=== PATIENT | female | born 2000 | race Caucasian/White ===

== ENCOUNTER 2023-09-03 01:23 | Emergency (ER) | payer OTHER ==
[2023-09-03 01:39] VITALS: BP 107/75; PULSE 87; RESP 20; TEMP 97.3; BMI 21.9
[2023-09-03] MEDS ORDERED: ACETAMINOPHEN 500 MG TABLET (FP) ONE (03:01)
[2023-09-03] MEDS: ACETAMINOPHEN 500 MG TABLET (FP) PO ONE (03:06)
[2023-09-03] MEDS: CEPHALEXIN MONOHYDRATE 500 MG CAPSULE (UD) PO ONE (05:35)
[2023-09-03] MEDS ORDERED: CEPHALEXIN MONOHYDRATE 500 MG CAPSULE (UD) ONE (05:36)
== END 2023-09-03 05:43 | disposition home or self-care (01) ==
LOC: JER 01:23
DX: O99.712 Diseases of the skin and subcutaneous tissue complicating pregnancy, second trimester (principal); L02.32 Furuncle of buttock; L02.426 Furuncle of left lower limb; Z3A.14 14 weeks gestation of pregnancy
CPT/HCPCS: 99283-25